=== PATIENT | female | born 1980 | race American Indian/Alaskan Native ===

== ENCOUNTER 2019-10-26 20:57 | Emergency (ER) | payer MEDICAID ==
[2019-10-26 21:21] VITALS: BP 135/76
--- NOTE | 2019-10-26 21:46 | Event Note ---
ED Screening Note Date of service: 10/26/19 Time: 21:41 ED Screening Note: This initial assessment/diagnostic orders/clinical plan/treatment(s) is/are subject to change based on patients health status, clinical progression and re- assessment by fellow clinical providers in the ED. Further treatment and workup at subsequent clinical providers discretion. Patient/guardian urged not to elope from the ED as their condition may be serious if not clinically assessed and managed. 38 yo female states she 8 weeks . ab1. C/o of spotting , vaginal discharge with odor, abdominal pain and nausea. She has not been seen by [facility] Initial orders include:
[2019-10-26 22:18] LABS: Basophils % (Auto) 0.3 % (0.0-1.8); Eosinophils # (Auto) 0.1 K/mm3 (0.0-0.4); Eosinophils % (Auto) 1.3 % (0.0-4.3); Hematocrit 37.3 % (30.3-42.9); Hemoglobin 12.2 gm/dl (10.1-14.3); Lymphocytes # (Auto) 2.2 K/mm3 (1.2-5.4); Lymphocytes % (Auto) 31.8 % (13.4-35.0); Mean Corpuscular HGB Conc 33 % (30-34); Mean Corpuscular Volume 82 fl (79-97); Monocytes # (Auto) 0.6 K/mm3 (0.0-0.8); Monocytes % (Auto) 8.5 % (0.0-7.3); Platelet Count 231 K/mm3 (140-440); Red Blood Count 4.55 M/mm3 (3.65-5.03); Red Cell Distribution Width 16.1 % (13.2-15.2)
[2019-10-26 22:42] LABS: BUN/Creatinine Ratio 16; Blood Urea Nitrogen 11 mg/dL (7-17); Calcium 9.2 mg/dL (8.4-10.2); Hemolysis Index 2
--- NOTE | 2019-10-26 22:48 | Ultrasound Report ---
ULTRASOUND OBSTETRIC INDICATION / CLINICAL INFORMATION: 8 weeks spotting, abd. pain. Clinical Gestational Age (GA): 8 weeks 6 days TECHNIQUE: Transabdominal. COMPARISON: None available. FINDINGS: GESTATIONAL SAC: Well-defined oval shape and intrauterine in location. YOLK SAC: No significant abnormality. EMBRYO/FETUS: No significant abnormality. - [place]-Rump Length = 1.0 cm = 7 weeks, 1 day(s). - Heart Rate, beats per minute (if present) = 154 ADNEXA: No significant abnormality. FREE FLUID: None. ADDITIONAL FINDINGS: None. IMPRESSION: 1. Single, living intrauterine with estimated sonographic age of 7 weeks, 1 day(s). Signer Name: Alise Encarnacion MD Signed: 10/26/2019 10:43 PM Workstation Name: [id number]
[2019-10-26] MEDS ORDERED: ACETAMINOPHEN 500 MG TAB PO ONE (23:57)
[2019-10-27 02:52] LABS: Bacteria,Urine 1+ /HPF (Negative); Bilirubin,Urine NEG (Negative); Blood,Urine NEG (Negative); Color,Urine Yellow (Yellow); Hyaline Casts,Urine 2 /LPF; Mucus,Urine 3+ /HPF; Protein,Urine <15 mg/dL mg/dL (Negative); Urobilinogen,Urine < 2.0 mg/dL (<2.0)
--- NOTE | 2019-10-27 03:55 | Emergency Department Report ---
ED Female HPI - General Chief complaint: Vaginal Bleeding Stated complaint: ABD PAIN, BACK PAIN, 8 WEEKS Time Seen by Provider: 10/26/19 21:41 Source: patient Mode of arrival: Ambulatory Limitations: No Limitations - History of Present Illness Initial comments: Patient is a A0 38-year-old -[place] female who is approximately 7 weeks gestation presents to the ED with complaint of acute onset persistent suprapubic pain with vaginal spotting for the last 24 hours. Patient also complains of vaginal discharge for 12 hours. Patient denies fever, chills, nausea, vomiting, dysuria, dyspareunia, dizziness, cough, chest pain, shortness of breath, low back pain or diarrhea. MD Complaint: vaginal bleeding, pelvic pain -: Sudden, hour(s) (24) Location: suprapubic Radiation: non-radiating Severity: moderate Severity scale (0 -10): 4 Quality: dull, aching Consistency: constant Improves with: none Worsens with: none Are you Now?: Yes Associated Symptoms: denies other symptoms, vaginal discharge, vaginal bleeding, abdominal pain, hematuria. denies: nausea/vomiting, fever/chills, headaches, loss of appetite, dysuria, rash, seizure, shortness of breath - Related Data Sexually active: Yes : 3 Para: 2 A: 0 Previous Rx's Medication Instructions Recorded Last Taken Type Cyclobenzaprine [Flexeril] 10 mg PO TID PRN #30 tablet 10/13/16 Unknown Rx Ibuprofen [Motrin] 800 mg PO Q8HR PRN #30 tablet 10/13/16 Unknown Rx Allergies Allergy/AdvReac Type Severity Reaction Status Date / Time No Known Allergies Allergy Verified 10/12/16 21:46 ED Review of Systems ROS: Stated complaint: ABD PAIN, BACK PAIN, 8 WEEKS Other details as noted in HPI Constitutional: denies: chills, fever Eyes: denies: eye pain, eye discharge, vision change ENT: denies: ear pain, throat pain Respiratory: denies: cough, shortness of breath, wheezing Cardiovascular: denies: chest pain, palpitations Endocrine: no symptoms reported Gastrointestinal: abdominal pain (suprapubic pain), nausea. denies: vomiting, diarrhea, constipation, hematemesis, melena, hematochezia Genitourinary: hematuria, other (vaginal spotting). denies: urgency, dysuria, discharge Musculoskeletal: denies: back pain, joint swelling, arthralgia Skin: denies: rash, lesions Neurological: denies: headache, weakness, paresthesias Psychiatric: denies: anxiety, depression Hematological/Lymphatic: denies: easy bleeding, easy bruising ED Past Medical Hx - Past Medical History Previous Medical History?: No - Surgical History Past Surgical History?: No - Social History Smoking Status: Current Every Day Smoker - Medications Home Medications: Home Medications Medication Instructions Recorded Confirmed Last Taken Type Cyclobenzaprine [Flexeril] 10 mg PO TID PRN #30 tablet 10/13/16 Unknown Rx Ibuprofen [Motrin] 800 mg PO Q8HR PRN #30 tablet 10/13/16 Unknown Rx ED Physical Exam - General Limitations: No Limitations General appearance: alert, in no apparent distress - Head Head exam: Present: atraumatic, normocephalic, normal inspection - Eye Eye exam: Present: normal appearance, PERRL, EOMI Pupils: Present: normal accommodation - ENT ENT exam: Present: normal exam, normal orophraynx, mucous membranes moist, TM's normal bilaterally, normal external ear exam - Neck Neck exam: Present: normal inspection, full ROM - Respiratory Respiratory exam: Present: normal lung sounds bilaterally. Absent: respiratory distress, wheezes, rales, rhonchi, chest wall tenderness - Cardiovascular Cardiovascular Exam: Present: regular rate, normal rhythm, normal heart sounds. Absent: systolic murmur, diastolic murmur, rubs, gallop - GI/Abdominal GI/Abdominal exam: Present: soft, tenderness (mildly tender suprapubic area), normal bowel sounds. Absent: guarding, rebound, hyperactive bowel sounds, hypoactive bowel sounds - Bi-manual exam: Present: other (pelvic exam deferred, patient prefers her own MANAGED CARE ANALYST physician) - Extremities Exam Extremities exam: Present: normal inspection, full ROM, normal capillary refill - Back Exam Back exam: Present: normal inspection, full ROM. Absent: muscle spasm - Neurological Exam Neurological exam: Present: alert, oriented X3, CN II-XII intact, normal gait, reflexes normal - Psychiatric Psychiatric exam: Present: normal affect, normal mood - Skin Skin exam: Present: warm, dry, intact, normal color. Absent: rash ED Course Vital Signs 12/12/1410/26/19 10/27/19 21:15 21:43 00:44 Temperature 98.0 F 98 F Pulse Rate 77 77 Respiratory 20 18 16 Rate Blood Pressure 135/76 Blood Pressure 135/76 [Right] O2 Sat by Pulse 97 100 Oximetry - Reevaluation(s) Reevaluation #1: 10/27/19 04:48 This is a 38-year-old -[place] female who is approximately 7 weeks gestation who presented to the ED with suprapubic pain and vaginal spotting. In the ED, patient is alert and oriented 3 and is not in distress. Lab test results were reviewed and are nonactionable including urinalysis, but the hCG Quant studies was 78393.0. Patient was treated in the ED for pain with Tylenol. The transvaginal ultrasound shows a single, living intrauterine with estimated sonographic age of 7 weeks, 1 day(s) with heart rate of 154 bpm. No other abnormalities. On reevaluation, patient's pain is well co ntrolled with medication. Patient was advised to maintain a complete pelvic rest and follow-up with MANAGED CARE ANALYST physician in 2-3 days for reevaluation or return to the ED immediately if symptoms get worse. ED Medical Decision Making - Lab Data Result diagrams: 10/26/19 21:53 10/26/19 21:53 - Radiology Data Radiology results: report reviewed, image reviewed Findings [address] [address] Ultrasound Report Signed Patient: PETRA BOWER MR#: [id number] : 1980 Acct:[id number] Age/Sex: 38 / F ADM Date: 10/26/19 Loc: ED Attending Dr: Ordering Physician: LEANNE PALOMO Date of Service: 10/26/19 Procedure(s): US OB <= 14 weeks fetus Accession Number(s): [id number] cc: LEANNE PALOMO ULTRASOUND OBSTETRIC INDICATION / CLINICAL INFORMATION: 8 weeks spotting, abd. pain. Clinical Gestational Age (GA): 8 weeks 6 days TECHNIQUE: Transabdominal. COMPARISON: None available. FINDINGS: GESTATIONAL SAC: Well-defined oval shape and intrauterine in location. YOLK SAC: No significant abnormality. EMBRYO/FETUS: No significant abnormality. - [place]-Rump Length = 1.0 cm = 7 weeks, 1 day(s). - Heart Rate, beats per minute (if present) = 154 ADNEXA: No significant abnormality. FREE FLUID: None. ADDITIONAL FINDINGS: None. IMPRESSION: 1. Single, living intrauterine with estimated sonographic age of 7 weeks, 1 day(s). Signer Name: Alise Encarnacion MD Signed: 10/26/2019 10:43 PM Workstation Name: [id number] Transcribed By: [facility] Dictated By: Alise Encarnacion MD Electronically Authenticated By: Alise Encarnacion MD Signed Date/Time: 10/26/ - Medical Decision Making This is a 38-year-old -[place] female who is approximately 7 weeks gestation who presented to the ED with suprapubic pain and vaginal spotting. In the ED, patient is alert and oriented 3 and is not in distress. Lab test results were reviewed and are nonactionable including urinalysis, but the hCG Quant studies was 40457.0. Patient was treated in the ED for pain with Tylenol. The transvaginal ultrasound shows a single, living intrauterine with estimated sonographic age of 7 weeks, 1 day(s) with heart rate of 154 bpm. No other abnormalities. On reevaluation, patient's pain is well controlled with medication. Patient was advised to maintain a complete pelvic rest, take Tylenol as needed for pain and follow-up with MANAGED CARE ANALYST physician in 2-3 days for reevaluation or return to the ED immediately if symptoms get worse. - Differential Diagnosis Threatened miscarriage; UTI; Ovarian cyst; STD Critical care attestation.: If time is entered above; I have spent that time in minutes in the direct care of this critically ill patient, excluding procedure time. ED Disposition Clinical Impression: Threatened miscarriage in early Abdominal pain during Qualifiers: Trimester: first trimester Qualified Code(s): O26.891 - Other specified related conditions, first trimester; R10.9 - Unspecified abdominal pain Disposition: DC-01 TO HOME OR SELFCARE Is pt being admited?: No Does the pt Need Aspirin: No Condition: Stable Instructions: Threatened Miscarriage (ED), Abdominal Pain in (ED) Additional Instructions: Maintain a complete pelvic rest, take Tylenol as needed for pain and follow-up with the MANAGED CARE ANALYST physician in 3-5 days for reevaluation. Return to the ED immediately if symptoms get worse. Referrals: PRIMARY CARE,MD [Primary Care Provider] - 3-5 Days Forms: Work/School Release Form(ED) Time of Disposition: 03:39 Print Language: FAROESE
== END 2019-10-27 03:45 | disposition home or self-care (01) ==
LOC: ED 20:57
DX: O20.0 Threatened abortion (principal); O99.331 Smoking (tobacco) complicating pregnancy, first trimester; Z79.899 Other long term (current) drug therapy; Z3A.01 Less than 8 weeks gestation of pregnancy
CPT/HCPCS: 36415; 76801; 80048; 81001; 84702; 85025; 86900; 86901; 87210